=== PATIENT | male | born 1935 | race Caucasian/White ===

== ENCOUNTER 2017-08-26 16:22 | Inpatient (IN) | payer MEDICARE, BC ==
[~2017-08-26] VITALS: Ht 172.7 cm; Wt 81.2 kg
[2017-08-26] MEDS ORDERED: LISI1TAB3 PO (16:56)
[2017-08-26] MEDS ORDERED: PROPARACAINE OPHTH 0.5%, 15ML ONE (17:27)
[2017-08-26] MEDS ORDERED: FLUORESCEIN OPHTHALMIC 1 MG STRIP ONE (17:27)
[2017-08-26] MEDS ORDERED: ONDANSETRON 2MG/ML, 2ML ONE (17:30)
[2017-08-26] MEDS ORDERED: FAMOTIDINE 20 MG/2 ML ONE (17:38)
[2017-08-26 17:45] LABS: MEAN CORPUSCULAR HEMOGLOBIN 32.8 pg (27.5-34.5); MEAN CORPUSCULAR HGB CONC 33.9 g/dL (33.2-36.2); MEAN CORPUSCULAR VOLUME 96.7 fL (81-97); MEAN PLATELET VOLUME 9.7 fL (7.4-10.4); PLATELET COUNT 103 x10^3/uL (130-400); RED CELL DISTRIBUTION WIDTH 14.6 % (9.4-14.8)
[2017-08-26] MEDS ORDERED: MORPHINE SULFATE 4 MG/ML, 1ML ONE (17:53)
[2017-08-26 17:54] LABS: ANION GAP 9 mmol/L (5-15); CALCIUM 9.3 mg/dL (8.5-10.1); CHLORIDE 95 mmol/L (98-107); CREATININE 0.84 mg/dL (0.7-1.3)
[2017-08-26] MEDS ORDERED: OXYcodone/APAP 5/325MG TABLET PO ONE (18:00)
[2017-08-26] MEDS ORDERED: SODIUM CHLORIDE FLUSH 10ML SYR IVF ONE (18:00)
[2017-08-26] MEDS ORDERED: ONDANSETRON ODT 4 MG PO ONE (18:00)
[2017-08-26] MEDS ORDERED: FAMOTIDINE 20 MG/2 ML IVP ONE (18:00)
[2017-08-26] MEDS ORDERED: SODIUM CHLORIDE 0.9% 1,000ML IVBOLUS ONE (18:00)
[2017-08-26] MEDS ORDERED: OXYcodone/APAP 5/325MG TABLET ONE (18:01)
[2017-08-26 18:52] LABS: MD YES
[2017-08-26 18:54] LABS: LYMPHS% (MANUAL) 95 % (22-44); SEG#(MANUAL) 1.98 x10^3/uL (1.8-6.8); SEGS% (MANUAL) 5 % (42-75)
[2017-08-26 18:57] LABS: <RBC MORPHOLOGY> NORMAL
[2017-08-26 18:58] LABS: <PLATELET ESTIMATE> ADEQUATE; LARGE PLATELETS 1+
[2017-08-26] MEDS ORDERED: SODIUM CHLORIDE FLUSH 10ML SYR IVF PRN (19:00)
[2017-08-26] MEDS ORDERED: ACYCLOVIR 800 MG in SODIUM CHLORIDE 0.9% 100 ML IV ONE (19:00)
[2017-08-26 19:30] VITALS: BP 153/77
[2017-08-26 19:40] VITALS: BP 153/77
[2017-08-26] MEDS ORDERED: VANCOMYCIN PMX 1GM/200ML 200 ML IV ONE (20:30)
[2017-08-26] MEDS ORDERED: VANCOMYCIN PER PHARMACY MC PRN (20:30)
[2017-08-26] MEDS ORDERED: LABETALOL 5MG/ML, 20ML IVPush PRN (21:00)
[2017-08-26] MEDS ORDERED: PHARMACOKINETIC MONITORING MC PRN (21:00)
[2017-08-26] MEDS ORDERED: BISACODYL 10 MG SUPP PR PRN (21:00)
[2017-08-26] MEDS ORDERED: ENALAPRILAT 1.25 MG/ML, 2ML IVPush PRN (21:00)
[2017-08-26] MEDS ORDERED: hydrALAzine 20 MG/ML, 1ML IVPush PRN (21:00)
[2017-08-26] MEDS ORDERED: POLYETHYLENE GLYCOL 17 GM PACKET PO PRN (21:00)
[2017-08-26] MEDS ORDERED: ACETAMINOPHEN 325 MG TABLET PO PRN (21:00)
[2017-08-26] MEDS ORDERED: PHARMACOKINETIC CONSULTATION MC ONE (21:00)
[2017-08-26] MEDS ORDERED: DOCUSATE 100 MG CAPSULE PO PRN (21:00)
[2017-08-26] MEDS: LACTOBACILLUS CHEW TABLET PO SCH (21:31)
[2017-08-26] MEDS: PIPERACILLIN/TAZO/PMX 3.375GM 50 ML IV SCH (21:31)
[2017-08-26] MEDS: ONDANSETRON 2MG/ML, 2ML IVPush PRN (21:31)
[2017-08-26] MEDS: HEPARIN 5,000 UNITS/ML, 1ML SQ SCH (21:31)
[2017-08-26 21:58] LABS: FREE T4 (FREE THYROXINE) 1.03 ng/dL (0.76-1.46); HEMOGLOBIN A1C 5.2 % (4.2-6.3); THYROID STIMULATING HORMONE 1.77 mIU/L (0.358-3.740)
[2017-08-26] MEDS ORDERED: VANCOMYCIN 1,400 MG in SODIUM CHLORIDE 0.9% 250 ML IV SCH (22:00)
[2017-08-26] MEDS: SODIUM CHLORIDE 0.9% 1,000 ML IV SCH (22:29)
[2017-08-26] MEDS: VANCOMYCIN 1,600 MG in SODIUM CHLORIDE 0.9% 250 ML IV SCH (22:29)
[2017-08-26 22:59] LABS: MICROSCOPIC NOT IND
[2017-08-26 23:01] LABS: CULTURE INDICATED? NO
[2017-08-27 03:48] VITALS: BP 127/65
[2017-08-27] MEDS: PIPERACILLIN/TAZO/PMX 3.375GM 50 ML IV SCH ×4 (03:54→23:00)
[2017-08-27] MEDS: ONDANSETRON 2MG/ML, 2ML IVPush PRN ×2 (03:57→11:47)
[2017-08-27 04:26] LABS: MEAN CORPUSCULAR HEMOGLOBIN 32.6 pg (27.5-34.5); MEAN CORPUSCULAR HGB CONC 33.3 g/dL (33.2-36.2); MEAN CORPUSCULAR VOLUME 98.1 fL (81-97); MEAN PLATELET VOLUME 9.1 fL (7.4-10.4); PLATELET COUNT 108 x10^3/uL (130-400); RED CELL DISTRIBUTION WIDTH 14.9 % (9.4-14.8)
[2017-08-27 04:39] LABS: ALBUMIN 3.2 g/dL (3.4-5.0); ANION GAP 7 mmol/L (5-15); CHLORIDE 100 mmol/L (98-107)
[2017-08-27 04:42] LABS: ALANINE AMINOTRANSFERASE 32 U/L (12-78); ALKALINE PHOSPHATASE 63 U/L (45-117); BILIRUBIN,TOTAL 2.1 mg/dL (0.2-1.0); CHOL/HDL RATIO 3.2; CHOLESTEROL, TOTAL 99 mg/dL (140-239); CREATININE 0.93 mg/dL (0.7-1.3); HDL CHOL % 31 % (26-37); HDL CHOLESTEROL (DIRECT) 31 mg/dL (40-60); LDL CHOLESTEROL,CALCULATED 50 mg/dL (54-169); LDL/HDL RATIO 1.6 (0.5-3.0); TOTAL PROTEIN 6.1 g/dL (6.4-8.2); TRIGLYCERIDES 88 mg/dL (50-200); VLDL CHOLESTEROL 18 mg/dL (0-25)
[2017-08-27] MEDS: ACYCLOVIR 800 MG in SODIUM CHLORIDE 0.9% 250 ML IV SCH ×3 (04:45→19:58)
[2017-08-27] MEDS: HEPARIN 5,000 UNITS/ML, 1ML SQ SCH ×3 (04:45→23:01)
[2017-08-27 05:47] LABS: MD YES
[2017-08-27 05:48] LABS: MONOS#(MANUAL) 0.41 x10^3/uL (0.3-2.7); MONOS% (MANUAL) 1 % (2-9); SEG#(MANUAL) 2.47 x10^3/uL (1.8-6.8); SEGS% (MANUAL) 6 % (42-75)
[2017-08-27 05:49] LABS: LYMPH#(MANUAL) 38.32 x10^3/uL (1-3.4); LYMPHS% (MANUAL) 93 % (22-44)
[2017-08-27 05:50] LABS: <PLATELET ESTIMATE> DECREASED; <RBC MORPHOLOGY> NORMAL
[2017-08-27 05:51] LABS: <PLT MORPHOLOGY> NORMAL PLT MORPH
[2017-08-27 05:53] LABS: SMUDGE CELLS 1+
[2017-08-27 08:56] VITALS: BP 132/71
[2017-08-27] MEDS: LACTOBACILLUS CHEW TABLET PO SCH ×3 (09:43→21:19)
[2017-08-27] MEDS: LISINOPRIL 10 MG TABLET PO SCH (09:45)
[2017-08-27] MEDS: HYDROCHLOROTHIAZIDE 12.5 MG CAPSULE PO SCH (09:49)
[2017-08-27] MEDS: SODIUM CHLORIDE 0.9% 1,000 ML IV SCH (13:07)
[2017-08-27 14:17] VITALS: BP 130/77
[2017-08-27] MEDS ORDERED: PROCHLORPERAZINE 10MG TABLET PO PRN (16:00)
[2017-08-27] MEDS ORDERED: ONDANSETRON 8 MG TABLET PO PRN (16:00)
[2017-08-27] MEDS ORDERED: PROCHLORPERAZINE 5 MG/ML, 2ML IVPush PRN (16:00)
[2017-08-27] MEDS ORDERED: ONDANSETRON 2MG/ML, 2ML IVPush PRN (16:00)
[2017-08-27] MEDS ORDERED: PROCHLORPERAZINE 25 MG SUPP PR PRN (16:00)
[2017-08-27] MEDS: GABAPENTIN 100 MG CAPSULE PO SCH ×2 (16:27→21:20)
[2017-08-27 20:09] VITALS: BP 129/75
[2017-08-27] MEDS: VANCOMYCIN 1,600 MG in SODIUM CHLORIDE 0.9% 250 ML IV SCH (23:45)
[2017-08-28 00:58] VITALS: BP 116/63
[2017-08-28] MEDS: ACYCLOVIR 800 MG in SODIUM CHLORIDE 0.9% 250 ML IV SCH ×2 (03:41→13:52)
[2017-08-28 04:46] LABS: MEAN CORPUSCULAR HEMOGLOBIN 33.3 pg (27.5-34.5); MEAN CORPUSCULAR HGB CONC 34.2 g/dL (33.2-36.2); MEAN CORPUSCULAR VOLUME 97.5 fL (81-97); RED BLOOD COUNT 4.19 x10^6/uL (4.38-5.82); RED CELL DISTRIBUTION WIDTH 14.8 % (9.4-14.8)
[2017-08-28 04:50] LABS: CHLORIDE 99 mmol/L (98-107)
[2017-08-28 04:55] LABS: ANION GAP 8 mmol/L (5-15); CALCIUM 7.7 mg/dL (8.5-10.1); CREATININE 0.86 mg/dL (0.7-1.3)
[2017-08-28 06:05] LABS: MD YES
[2017-08-28 06:27] LABS: SEG#(MANUAL) 3.93 x10^3/uL (1.8-6.8); SEGS% (MANUAL) 10 % (42-75)
[2017-08-28 06:28] LABS: LYMPH#(MANUAL) 35.37 x10^3/uL (1-3.4); LYMPHS% (MANUAL) 90 % (22-44)
[2017-08-28 06:29] LABS: <RBC MORPHOLOGY> NORMAL; SMUDGE CELLS 2+
[2017-08-28 06:31] LABS: <PLATELET ESTIMATE> DECREASED; LARGE PLATELETS 1+; MEAN PLATELET VOLUME 9.8 fL (7.4-10.4); PLATELET COUNT 94 x10^3/uL (130-400)
[2017-08-28] MEDS: PIPERACILLIN/TAZO/PMX 3.375GM 50 ML IV SCH ×2 (06:39→12:21)
[2017-08-28 08:40] VITALS: BP 130/72
[2017-08-28] MEDS: GABAPENTIN 100 MG CAPSULE PO SCH ×2 (09:41→16:00)
[2017-08-28] MEDS: LISINOPRIL 10 MG TABLET PO SCH (09:41)
[2017-08-28] MEDS: HYDROCHLOROTHIAZIDE 12.5 MG CAPSULE PO SCH (09:41)
[2017-08-28] MEDS: HEPARIN 5,000 UNITS/ML, 1ML SQ SCH ×2 (09:42→16:00)
[2017-08-28] MEDS: LACTOBACILLUS CHEW TABLET PO SCH (09:42)
[2017-08-28] MEDS ORDERED: VALA1000 PO (11:14)
[2017-08-28] MEDS ORDERED: AMOX1TAB64 PO (11:14)
[2017-08-28] MEDS ORDERED: GABA-826 PO (11:14)
[2017-08-28 15:15] VITALS: BP 132/73
== END 2017-08-28 17:51 | disposition home or self-care (01) | DRG 596 ==
LOC: ED 18:57 → 3NW 19:05 → ED 20:52
PROVIDERS: ADMIT Internal Medicine; ATTEND Family Medicine
DX: B02.9 Zoster without complications (principal); D69.6 Thrombocytopenia, unspecified; D89.9 Disorder involving the immune mechanism, unspecified; L03.211 Cellulitis of face; E87.1 Hypo-osmolality and hyponatremia; C91.11 Chronic lymphocytic leukemia of B-cell type in remission; I10 Essential (primary) hypertension; Z88.5 Allergy status to narcotic agent; Z96.643 Presence of artificial hip joint, bilateral
CPT/HCPCS: 36415; 80048; 80053; 80061; 81003; 82040; 83036; 83735; 84439; 84443; 85025; 87040; 96374; J0133; J1644; J2405; J2543; J3370; Q0162; J0780; J7030; J7050; S0028

== ENCOUNTER 2019-09-23 05:16 | Day surgery (SDC) | payer MEDICARE, BC ==
[2019-09-22 12:10] LABS: ALBUMIN 3.9 g/dL (3.4-5.0); ANION GAP 5 mmol/L (5-15); CALCIUM 8.7 mg/dL (8.5-10.1); CHLORIDE 109 mmol/L (98-107)
[2019-09-22 12:22] LABS: ALANINE AMINOTRANSFERASE 45 U/L (12-78); ALKALINE PHOSPHATASE 88 U/L (45-117); CREATININE 0.94 mg/dL (0.7-1.3); TOTAL PROTEIN 6.7 g/dL (6.4-8.2)
[~2019-09-23] VITALS: Ht 170.2 cm; Wt 85.3 kg
[~2019-09-23 05:16] MED LIST: AMOX1TAB64 PO; ASCO-96 PO; ASPI-496 PO; CETI10CA PO; CYAN1TAB29 PO; FISH1CAP PO; GABA-826 PO; LISI1TAB19 PO; LISI1TAB23 PO; VALA10007 PO
[2019-09-23] MEDS ORDERED: EPINEPHRINE TOPICAL SOLN 1 MG/ML, 30ML ONE (06:03)
[2019-09-23] MEDS ORDERED: OXYMETAZOLINE NASAL SPRAY 0.05%, 15ML ONE (06:03)
[2019-09-23] MEDS ORDERED: BACITRACIN OINT 500U/GM, 15 GM ONE (06:03)
[2019-09-23] MEDS ORDERED: FLUORESCEIN SODIUM 500 MG/5 ML ONE (06:04)
[2019-09-23] MEDS ORDERED: LIDOCAINE 1%-EPI 1:100K, 20ML ONE (06:04)
[2019-09-23 06:05] VITALS: BP 161/83
[2019-09-23] MEDS ORDERED: LACTATED RINGERS 1,000 ML IV SCH (06:09)
[2019-09-23] MEDS ORDERED: CHLORHEXIDINE 15 ML UDC MM STA (06:09)
[2019-09-23] MEDS ORDERED: OFLOXACIN OPHTH 0.3%, 5ML OP ONE (06:30)
[2019-09-23] MEDS ORDERED: FENTANYL PF 100 MCG/2ML ONE (06:36)
[2019-09-23] MEDS ORDERED: FENTANYL PF 100 MCG/2ML IV PRN (07:00)
[2019-09-23] MEDS ORDERED: ACETAMINOPHEN 325 MG TABLET PO PRN (07:00)
[2019-09-23] MEDS ORDERED: PROMETHAZINE 25 MG/ML, 1ML IVPush PRN (07:00)
== END 2019-09-23 08:16 | disposition home or self-care (01) ==
LOC: OUT 05:16
PROVIDERS: ATTEND Otolaryngology
DX: H65.05 Acute serous otitis media, recurrent, left ear (principal); H90.72 Mixed conductive and sensorineural hearing loss, unilateral, left ear, with unrestricted hearing on the contralateral side; C91.10 Chronic lymphocytic leukemia of B-cell type not having achieved remission; I10 Essential (primary) hypertension; Z79.82 Long term (current) use of aspirin; Z79.899 Other long term (current) drug therapy; Z88.5 Allergy status to narcotic agent; Z98.890 Other specified postprocedural states
CPT/HCPCS: 31622; 36415; 69436; 80053; 93005; J3010; J7120; U0001; J3490